=== PATIENT | female | born 1965 | race Caucasian/White ===

== ENCOUNTER 2019-10-24 04:31 | Inpatient (IN) | payer MEDICAID ==
[~2019-10-24] VITALS: Ht 162.6 cm; Wt 106.5 kg
[2019-10-24] MEDS ORDERED: cloNIDine HCL 0.1 MG TAB PO ONE (05:00)
[2019-10-24 05:11] LABS: Urine WBC None Seen /hpf (0 - 5)
[2019-10-24] MEDS ORDERED: ONDANSETRON HCL 4 MG/2 ML VIAL IV ONE (05:15)
[2019-10-24] MEDS ORDERED: MORPHINE SULFATE 4 MG/ML SYR/VIAL IV ONE (05:15)
[2019-10-24 05:38] LABS: Urine Bacteria MANY /hpf (None Seen); Urine Blood Negative /uL (Negative); Urine Specific Gravity 1.022 (1.001-1.035)
[2019-10-24] MEDS ORDERED: HYDROmorphone HCL 2 MG/ML VL IV ONE (06:00)
[2019-10-24 06:43] LABS: Basophils # (auto) 0.1 10 ^3/uL (0-0.2); Basophils % (auto) 1.1 % (0.0-2.0); Eosinophils # (auto) 0.3 10 ^3/uL (0-0.8); Hematocrit 44.4 % (36.0-46.0); Hemoglobin 14.4 g/dL (12.2-16.2); Lymphocytes # (auto) 1.9 10 ^3/uL (0.4-5.4); Lymphocytes % (auto) 19.1 % (10.0-50.0); Mean Corpuscular Hemoglobin 28.8 pg (28.0-32.0); Mean Corpuscular Hgb Conc. 32.5 g/dL (32.0-36.0); Mean Corpuscular Volume 88.8 fL (80.0-100.0); Monocytes # (auto) 0.8 10 ^3/uL (0-1.3); Monocytes % (auto) 7.7 % (0.0-12.0); Neutrophils # (auto) 6.9 10 ^3/uL (1.6-8.6); Neutrophils % (auto) 69.1 % (37.0-80.0); Nucleated Red Blood Cells % 0.1 %; Platelet Count (auto) 267 10^3/uL (140-450); Red Cell Distribution Width 14.6 % (11.8-14.3); White Blood Cell 9.9 10^3/uL (4.4-10.8)
[2019-10-24] MEDS ORDERED: cefTRIAXone 1GM/50ML D5W 50 ML IV ONE (06:45)
[2019-10-24 07:04] LABS: Albumin 3.3 g/dL (3.4-5.0); Amylase 49 U/L (25-115); Anion Gap 7 (5-15); Blood Urea Nitrogen 16 mg/dL (7-18); Calcium 8.5 mg/dL (8.5-10.1); Carbon Dioxide 29 mmol/L (21-32); Chloride 103 mmol/L (98-107); Glucose 116 mg/dL (74-106); Lipase 200 U/L (73-393); Magnesium 2.5 mg/dL (1.6-2.6); Potassium 3.6 mmol/L (3.5-5.1); Sodium 139 mmol/L (136-145)
[2019-10-24 07:13] LABS: Alanine Aminotransferase 1444 U/L (13-56); Alkaline Phosphatase 316 U/L (45-117); Aspartate Aminotransferase 989 U/L (15-37); BUN/Creatinine Ratio 11.7; Bilirubin, Total 1.5 mg/dL (0.2-1.0); GFR African American 52 mL/min; GFR Non-African American 43 mL/min; Total Protein 7.9 g/dL (6.4-8.2)
[2019-10-24] MEDS ORDERED: SODIUM CHLORIDE 0.9% 1,000 ML IV SCH (08:25)
[2019-10-24] MEDS ORDERED: FAMOTIDINE (10MG/ML) 2ML VL IV SCH (08:30)
[2019-10-24] MEDS ORDERED: MORPHINE SULF INJ 2 MG/ML SYRINGE 1ML IV PRN ×2 (08:30)
[2019-10-24] MEDS ORDERED: CLON0.1T PO (09:33)
[2019-10-24] MEDS ORDERED: METO-5 PO (09:33)
[2019-10-24] MEDS ORDERED: LEVO200T7 PO (09:33)
[2019-10-24] MEDS ORDERED: LOSA-39 PO (09:33)
[2019-10-24] MEDS ORDERED: ENOXAPARIN SOD 40 MG/0.4 ML SYRINGE SC SCH (10:00)
[2019-10-24] MEDS: metroNIDAZOLE 500MG/100ML 100 ML IV SCH ×3 (10:05→22:57)
--- NOTE | 2019-10-24 10:25 | NUR ---
MS admit from ER MONICA RODRIGUEZ admitted to tele/MS after SBAR received. Patient oriented to BULL MARADIAGARN primary RN, unit, 275 room,B bed, and unit policies regarding patient care and visiting hours. Patient weighed by bedscale and encouraged to call if they need something. All questions and concerns addressed, patient verbalized understanding. Note:
[2019-10-24] MEDS ORDERED: D5W/SOD CHL 0.45%/KCL 40MEQ 1,000 ML IV ONE (10:30)
[2019-10-24 10:42] VITALS: BP 143/83
--- NOTE | 2019-10-24 10:55 | NUR ---
DOCTOR VINSON AT BEDSIDE
[2019-10-24 11:14] LABS: INR 0.99 (0.9-1.15); Partial Thromboplastin Time 24.3 sec (23.64-32.05)
[2019-10-24] MEDS ORDERED: ONDANSETRON HCL 4 MG/2 ML VIAL IV PRN (11:30)
[2019-10-24 14:10] VITALS: BP 137/87
[2019-10-24] MEDS ORDERED: hydrALAZINE HCL 20 MG/ML VL IV PRN (14:15)
[2019-10-24] MEDS: HYDROmorphone HCL 2 MG/ML VL IV PRN (15:05)
[2019-10-24 16:39] VITALS: BP 140/85
[2019-10-24] MEDS: SODIUM CHLORIDE 0.9% 1,000 ML IV SCH (18:25)
--- NOTE | 2019-10-24 19:29 | NUR ---
Opening Shift Note Received report and assumed care of patient. Patient is awake and alert. No signs or symptoms of distress noted. Instructed patient on plan of care and to call for assistance as needed. Will continue to monitor.
[2019-10-24 21:00] VITALS: BP 143/81
[2019-10-24] MEDS: METOPROLOL TARTRATE 25 MG TAB PO SCH (22:56)
[2019-10-24] MEDS: PANTOPRAZOLE 40 MG/10 ML VIAL INJ IV SCH (22:57)
--- NOTE | 2019-10-24 22:57 | NUR ---
IV removal/insertion 20g IV to the Left forearm reddened. Discontinued IV with clean technique, catheter tip fully intact. Pressure dressing applied to site. NOTE: Inserted 20g IV to the Right wrist. Patient tolerated procedure well.
[2019-10-25 04:30] VITALS: BP 158/87
[2019-10-25 05:30] VITALS: BP 139/75
[2019-10-25] MEDS: metroNIDAZOLE 500MG/100ML 100 ML IV SCH ×3 (05:38→21:53)
[2019-10-25 06:43] LABS: Basophils # (auto) 0.1 10 ^3/uL (0-0.2); Basophils % (auto) 1.2 % (0.0-2.0); Eosinophils # (auto) 0.2 10 ^3/uL (0-0.8); Eosinophils % (auto) 3.3 % (0.0-7.0); Hemoglobin 13.1 g/dL (12.2-16.2); Lymphocytes # (auto) 1.8 10 ^3/uL (0.4-5.4); Lymphocytes % (auto) 24.5 % (10.0-50.0); Mean Corpuscular Hemoglobin 29.3 pg (28.0-32.0); Mean Corpuscular Hgb Conc. 32.8 g/dL (32.0-36.0); Mean Corpuscular Volume 89.1 fL (80.0-100.0); Monocytes # (auto) 0.5 10 ^3/uL (0-1.3); Monocytes % (auto) 6.7 % (0.0-12.0); Neutrophils # (auto) 4.8 10 ^3/uL (1.6-8.6); Neutrophils % (auto) 64.3 % (37.0-80.0); Platelet Count (auto) 203 10^3/uL (140-450); Red Blood Cells 4.49 10^6/uL (4.0-5.20); Red Cell Distribution Width 15.1 % (11.8-14.3); White Blood Cell 7.5 10^3/uL (4.4-10.8)
--- NOTE | 2019-10-25 06:47 | NUR ---
Patient off unit Patient taken down to Pre-op.
[2019-10-25] MEDS ORDERED: ceFAZolin 1GM/50ML 50 ML IV ONE (06:54)
[2019-10-25] MEDS: SODIUM CHLORIDE 0.9% 1,000 ML IV SCH ×2 (06:55→23:35)
[2019-10-25 07:00] LABS: % Iron Saturation 31.7 % (15-50)
[2019-10-25 07:02] LABS: Potassium 4.1 mmol/L (3.5-5.1)
[2019-10-25] MEDS ORDERED: METOCLOPRAMIDE HCL 5MG/ml INJ 2ml VIAL IV ONE (07:15)
[2019-10-25] MEDS ORDERED: GLYCOPYRROLATE 0.2 MG/ML 1ML VIAL IV ONE (07:15)
[2019-10-25] MEDS ORDERED: ETOMIDATE (2MG/ML) 20ML VIAL IV ONE (07:15)
[2019-10-25] MEDS ORDERED: NEOSTIGMINE 1 MG/ML INJ (10mg/10ML VIAL) IV ONE (07:15)
[2019-10-25 07:16] LABS: Albumin 3.2 g/dL (3.4-5.0); BUN/Creatinine Ratio 13.7; Bilirubin, Total 1.1 mg/dL (0.2-1.0); Calcium 7.8 mg/dL (8.5-10.1); Magnesium 2.3 mg/dL (1.6-2.6); Total Protein 7.2 g/dL (6.4-8.2)
[2019-10-25] MEDS ORDERED: MEPERIDINE HCL (25 MG/ML) 1ML VIAL ONE (07:34)
[2019-10-25] MEDS ORDERED: fentaNYL CITRATE 100 MCG/2 ML VL ONE (07:34)
[2019-10-25] MEDS ORDERED: MIDAZOLAM HCL 1MG/1ML-2 ML VIAL ONE (07:34)
[2019-10-25] MEDS ORDERED: SUCCINYLCHOLINE CHLORIDE 20 MG/ML 10ML VIAL IV ONE (07:37)
[2019-10-25] MEDS ORDERED: DexAMETHasone SOD PHOS 10MG/1ML VIAL INJ ONE (07:44)
[2019-10-25] MEDS ORDERED: PROPOFOL 10 MG/ML 20 ML IV ONE (07:44)
[2019-10-25] MEDS ORDERED: KETOROLAC TROMETH 15 mg/ml 1ML VL IV ONE (08:30)
[2019-10-25] MEDS ORDERED: fentaNYL CITRATE 100 MCG/2 ML VL IV PRN (08:30)
[2019-10-25] MEDS ORDERED: HYDROmorphone HCL 2 MG/ML VL IV PRN (08:30)
[2019-10-25] MEDS ORDERED: hydrALAZINE HCL 20 MG/ML VL IV PRN (08:30)
[2019-10-25] MEDS ORDERED: ONDANSETRON HCL 4 MG/2 ML VIAL IV PRN (08:30)
[2019-10-25] MEDS ORDERED: ePHEDrine SULFATE 50 MG/ML AMP IV PRN (08:30)
[2019-10-25] MEDS ORDERED: LABETALOL HCL 5 MG/ML 4ML SYRINGE IV PRN (08:30)
[2019-10-25] MEDS ORDERED: MIDAZOLAM HCL 1MG/1ML-2 ML VIAL IV PRN (08:30)
--- NOTE | 2019-10-25 09:58 | NUR ---
Patient came back from OR, patient awake, alert. No respiratory distress noted. There is 2 incision to abdomen with 1 JOSHUA drain. Patient c/o of pain 6/10. Place a call light within reach. Will continue to monitor.
[2019-10-25] MEDS: METOPROLOL TARTRATE 25 MG TAB PO SCH ×2 (10:00→21:53)
[2019-10-25] MEDS: cefTRIAXone 1GM/50ML D5W 50 ML IV SCH (10:05)
[2019-10-25] MEDS: PANTOPRAZOLE 40 MG/10 ML VIAL INJ IV SCH ×2 (10:05→21:53)
[2019-10-25] MEDS: PROMETHAZINE HCL 25 MG/ML 1ML IV PRN ×3 (10:54→21:54)
[2019-10-25] MEDS: HYDROmorphone HCL 2 MG/ML VL IV PRN ×3 (10:54→21:54)
[2019-10-25 12:45] VITALS: BP 119/67
[2019-10-25 16:55] VITALS: BP 127/57
--- NOTE | 2019-10-25 19:20 | NUR ---
Opening Shift Note Received report and assumed care of patient. Patient is awake and alert laying in bed with cellphone. No signs or symptoms of distress noted. Instructed patient on plan of care and to call for assistance as needed. Will continue to monitor.
--- NOTE | 2019-10-25 19:22 | NUR ---
Empty 70 ml of serosanguineous from JOSHUA drain.
[2019-10-25 21:55] VITALS: BP 144/75
--- NOTE | 2019-10-25 22:00 | NUR ---
Pt. refusing IV fluids at this time. States she wants to rest without moving IV around. Pt. educated on needs; however, pt. tolerating fluids and is drinking and eating jello. Pt. verbalizes understanding. IV site saline locked at this time.
[2019-10-26 05:00] VITALS: BP 158/85
[2019-10-26] MEDS: PROMETHAZINE HCL 25 MG/ML 1ML IV PRN (05:28)
[2019-10-26] MEDS: HYDROmorphone HCL 2 MG/ML VL IV PRN ×2 (05:28→20:43)
[2019-10-26] MEDS: LEVOTHYROXINE SODIUM 100 MCG TAB PO SCH (05:28)
[2019-10-26] MEDS: metroNIDAZOLE 500MG/100ML 100 ML IV SCH ×3 (05:28→22:17)
[2019-10-26 06:17] LABS: Basophils # (auto) 0.1 10 ^3/uL (0-0.2); Basophils % (auto) 0.7 % (0.0-2.0); Eosinophils # (auto) 0 10 ^3/uL (0-0.8); Eosinophils % (auto) 0.2 % (0.0-7.0); Hematocrit 36.4 % (36.0-46.0); Hemoglobin 12.1 g/dL (12.2-16.2); Lymphocytes # (auto) 2.5 10 ^3/uL (0.4-5.4); Lymphocytes % (auto) 15.5 % (10.0-50.0); Mean Corpuscular Hemoglobin 29.7 pg (28.0-32.0); Mean Corpuscular Hgb Conc. 33.2 g/dL (32.0-36.0); Mean Corpuscular Volume 89.5 fL (80.0-100.0); Monocytes # (auto) 0.9 10 ^3/uL (0-1.3); Monocytes % (auto) 5.5 % (0.0-12.0); Neutrophils # (auto) 12.4 10 ^3/uL (1.6-8.6); Neutrophils % (auto) 78.1 % (37.0-80.0); Platelet Count (auto) 210 10^3/uL (140-450); Red Blood Cells 4.06 10^6/uL (4.0-5.20); Red Cell Distribution Width 14.9 % (11.8-14.3); White Blood Cell 15.9 10^3/uL (4.4-10.8)
[2019-10-26 06:21] LABS: Albumin 3.1 g/dL (3.4-5.0); Potassium 4.2 mmol/L (3.5-5.1)
--- NOTE | 2019-10-26 06:23 | NUR ---
JOSHUA LEWIS drained. 30ml output.
[2019-10-26 06:28] LABS: Bilirubin, Total 0.7 mg/dL (0.2-1.0); Calcium 7.8 mg/dL (8.5-10.1); Total Protein 6.8 g/dL (6.4-8.2)
--- NOTE | 2019-10-26 06:36 | NUR ---
CLOSING NOTE I/S PLACED ON BEDSIDE TABLE. PT. ASLEEP. NO EDUCATION GIVEN YET ON I/S. JOSHUA DRAINED. 30 ML OUT. PT ENDORSED TO DAY NOC. Addendum: 10/26/19 at 0636 by Jennifer Murray RN RN ENDORSED TO DAY KEISHA
[2019-10-26 09:00] VITALS: BP 171/97
[2019-10-26] MEDS: METOPROLOL TARTRATE 25 MG TAB PO SCH ×2 (09:33→22:17)
[2019-10-26] MEDS: cefTRIAXone 1GM/50ML D5W 50 ML IV SCH (09:33)
[2019-10-26] MEDS: PANTOPRAZOLE 40 MG/10 ML VIAL INJ IV SCH ×2 (09:33→22:16)
--- NOTE | 2019-10-26 11:30 | NUR ---
Dr. Huerta at bedside, received new orders, noted and carried it out.
--- NOTE | 2019-10-26 12:00 | NUR ---
Last BM 10/19, offer laxative, patient does not want to take at this time. Will continue to monitor.
[2019-10-26 13:00] VITALS: BP 164/114
[2019-10-26] MEDS ORDERED: LACTULOSE 20Gm/30ML SOLN PO PRN (15:15)
[2019-10-26] MEDS: SODIUM CHLORIDE 0.9% 1,000 ML IV SCH (16:40)
[2019-10-26 16:59] VITALS: BP 158/102
[2019-10-26] MEDS ORDERED: LACTULOSE 20Gm/30ML SOLN PO SCH (18:00)
--- NOTE | 2019-10-26 18:15 | NUR ---
JOSHUA drain output 50 ML.
--- NOTE | 2019-10-26 19:50 | NUR ---
OPENING NOTE PT. DANGLING IN BED AWAKE. SAYS SHE "FEELS GOOD". PT. ASKS FOR HELP TO RESTROOM. NO B/M YET. LACTULOSE OFFERED, PT. REFUSED STATING SHE WANTS TO WAIT AND "JUST WALK A LITTLE". PT. IN NO PAIN/DISTRESS AT THIS TIME. HELPED TO BATHROOM AND THEN BACK TO BED. WILL CONTINUE TO MONITOR PT.
[2019-10-26 22:00] VITALS: BP_SYST 114; BP_SYST 133; BP_DIAS 79; BP_DIAS 87
[2019-10-27] MEDS: LEVOTHYROXINE SODIUM 100 MCG TAB PO SCH (06:03)
[2019-10-27] MEDS: metroNIDAZOLE 500MG/100ML 100 ML IV SCH ×2 (06:03→14:00)
--- NOTE | 2019-10-27 06:15 | NUR ---
JOSHUA DRAIN EMPTIED 30 ML OUT
[2019-10-27 06:33] LABS: Basophils # (auto) 0 10 ^3/uL (0-0.2); Basophils % (auto) 0.4 % (0.0-2.0); Eosinophils # (auto) 0.3 10 ^3/uL (0-0.8); Hematocrit 37.4 % (36.0-46.0); Hemoglobin 12.4 g/dL (12.2-16.2); Lymphocytes # (auto) 2.7 10 ^3/uL (0.4-5.4); Lymphocytes % (auto) 21.3 % (10.0-50.0); Mean Corpuscular Hemoglobin 29.5 pg (28.0-32.0); Mean Corpuscular Volume 89.2 fL (80.0-100.0); Monocytes % (auto) 7.7 % (0.0-12.0); Neutrophils # (auto) 8.5 10 ^3/uL (1.6-8.6); Neutrophils % (auto) 68.6 % (37.0-80.0); Platelet Count (auto) 199 10^3/uL (140-450); Red Blood Cells 4.19 10^6/uL (4.0-5.20); Red Cell Distribution Width 14.9 % (11.8-14.3); White Blood Cell 12.4 10^3/uL (4.4-10.8)
[2019-10-27 06:53] LABS: Albumin 3.1 g/dL (3.4-5.0)
[2019-10-27 06:59] LABS: BUN/Creatinine Ratio 14.2; Bilirubin, Total 0.5 mg/dL (0.2-1.0); Total Protein 6.9 g/dL (6.4-8.2)
--- NOTE | 2019-10-27 07:30 | NUR ---
Opening Shift Note Assumed care of patient, awake and alert. No S/S of distress/SOB or pain. Bed in lowest and locked position with side rails upx2 and call light in reach. Instructed on POC and to call for assist PRN, will continue to monitor for changes Q1hr and PRN.
[2019-10-27 09:00] VITALS: BP 133/75
--- NOTE | 2019-10-27 10:00 | NUR ---
IV insertion IV access obtained, via clean sterile technique by inserting 20 gauge catheter at L AC after 1 attempt(s). IV secured properly. No trauma to site. Patient tolerated well.
[2019-10-27] MEDS: PANTOPRAZOLE 40 MG/10 ML VIAL INJ IV SCH (10:14)
[2019-10-27] MEDS: cefTRIAXone 1GM/50ML D5W 50 ML IV SCH (10:14)
[2019-10-27] MEDS: METOPROLOL TARTRATE 25 MG TAB PO SCH (10:15)
[2019-10-27] MEDS: SODIUM CHLORIDE 0.9% 1,000 ML IV SCH (10:15)
[2019-10-27 13:00] VITALS: BP 166/89
[2019-10-27] MEDS ORDERED: DOCU-94 PO (13:27)
[2019-10-27] MEDS ORDERED: PANT40TA2 PO (13:27)
[2019-10-27] MEDS ORDERED: LEVO500T21 PO (13:27)
[2019-10-27] MEDS ORDERED: METR500T PO (13:27)
[2019-10-27 13:43] VITALS: BP 133/75
[2019-10-27 14:00] VITALS: BP 150/69
--- NOTE | 2019-10-27 14:00 | NUR ---
EDUCATED PATIENT ON THE JOSHUA DRAIN AND CARE OF THE JOSHUA DRAIN AND INCISIONS AT HOME.
--- NOTE | 2019-10-27 14:25 | NUR ---
Discharge instructions given as ordered. Encourage to follow up with PMD as instructed. All questions and concerns addressed. Patient verbalized understanding. Medication reconciliation form completed and copy given to patient. No Home medications held in Pharmacy. Pt refused vaccines. IV removed with catheter intact, pressure dressing applied. Patient taken to vehicle via wheelchair with all personal belongings, accompanied by staff and family member. No distress noted at time of departure.
[2019-10-28 09:37] LABS: Hepatitis A Ab IgM Negative; Hepatitis B Core IgM Negative; Hepatitis B Surface Antigen Negative (Negative)
[2019-10-28 09:38] LABS: Hepatitis C Antibody Negative (Negative)
== END 2019-10-27 14:25 | disposition home or self-care (01) | DRG 263 ==
LOC: EDBD 04:31 → ER 04:31 → OVERFLOW 04:32 → WEST WING 10:29
PROVIDERS: ADMIT Internal Medicine; ATTEND Internal Medicine
PROC: 0FT44ZZ Resection of Gallbladder, Percutaneous Endoscopic Approach (ICD-10-PCS; principal; 2019-10-25 07:35)
DX: K80.42 Calculus of bile duct with acute cholecystitis without obstruction (principal); N17.0 Acute kidney failure with tubular necrosis; E66.01 Morbid (severe) obesity due to excess calories; K57.90 Diverticulosis of intestine, part unspecified, without perforation or abscess without bleeding; K44.9 Diaphragmatic hernia without obstruction or gangrene; N39.0 Urinary tract infection, site not specified; E03.9 Hypothyroidism, unspecified; B96.20 Unspecified Escherichia coli [E. coli] as the cause of diseases classified elsewhere; E78.5 Hyperlipidemia, unspecified; F17.210 Nicotine dependence, cigarettes, uncomplicated; I12.9 Hypertensive chronic kidney disease with stage 1 through stage 4 chronic kidney disease, or unspecified chronic kidney disease; N18.9 Chronic kidney disease, unspecified; Z80.1 Family history of malignant neoplasm of trachea, bronchus and lung; Z90.710 Acquired absence of both cervix and uterus; Z91.19 Patient's noncompliance with other medical treatment and regimen; Z83.3 Family history of diabetes mellitus; Z68.41 Body mass index [BMI] 40.0-44.9, adult
CPT/HCPCS: 36415; 71045; 74176; 76705; 78226; 80053; 80061; 80074; 81001; 82150; 83540; 83550; 83690; 83735; 84436; 84443; 84481; 84484; 85025; 85610; 85730; 86038; 86850; 86900; 86901; 87086; 87088; 87186; 93005; 96365; 96375; 97163; C9113; G0378; J0330; J0690; J0696; J1100; J2250; J2405; J2704; J3490